=== PATIENT | male | born 1965 | race Caucasian/White ===

== ENCOUNTER 2020-04-08 08:07 | Day surgery (SDC) | payer OTHER ==
[~2020-04-08 08:07] MED LIST: EPINEPHrine 1 MG/ML SDV ONE; Lactated Ringers 1,000 ML IV SCH; Lidocaine 1%/Sod Bicarbonate in NS 8.4% 1 ML Syringe IDERM PRN; Ropivacaine 0.5% 5 MG/ML 30 ML SDV ONE; Sodium Chloride 0.9% 10 ML Syringe FLUSH PRN
[2020-04-08] MEDS ORDERED: ceFAZolin 1 GM Vial ONE (08:10)
[2020-04-08] MEDS ORDERED: Ketorolac 30 MG/ML SDV ONE (08:10)
[2020-04-08] MEDS ORDERED: Lactated Ringers 1,000 ML ONE (08:10)
[2020-04-08] MEDS ORDERED: Propofol 200 MG/20 ML SDV ONE ×2 (08:10→09:50)
[2020-04-08] MEDS ORDERED: Ondansetron 4 MG/2 ML SDV ONE (08:10)
[2020-04-08] MEDS ORDERED: Midazolam 1 MG/ML 2 ML SDV ONE (08:11)
[2020-04-08] MEDS ORDERED: Lidocaine 1% 4 ML ONE (08:11)
[2020-04-08] MEDS ORDERED: fentaNYL 100 MCG/2 ML SDV ONE (08:11)
[2020-04-08] MEDS ORDERED: Dexamethasone 4 MG/ML 5 ML MDV ONE (08:11)
[2020-04-08] MEDS ORDERED: Scopolamine 1.5 MG Transdermal Patch TOP ONE (08:32)
[2020-04-08] MEDS ORDERED: Ketamine 500 mg/10 ML MDV ONE (09:49)
[2020-04-08] MEDS ORDERED: EPINEPHrine 1 MG/ML 30 ML MDV IRR SCH (10:30)
--- NOTE | 2020-04-08 10:50 | PCM.POSTAN ---
POST ANESTHESIA ASSESSMENT - MENTAL STATUS Mental Status: Somnolent - VITAL SIGNS Vital Signs: Last Vital Signs Temp 36.6 C 04/08/20 08:05 Pulse 100 04/08/20 09:10 Resp 12 04/08/20 09:10 BP 148/94 H 04/08/20 09:10 Pulse Ox 96 04/08/20 09:10 1039 98.3F 133/74 80 15 94% - RESPIRATORY Respiratory Status: Respiratory Rate WNL, Airway Patent, O2 Saturation Stable, Supplemental Oxygen - CARDIOVASCULAR CV Status: Pulse Rate WNL, Blood Pressure Stable - GASTROINTESTINAL GI Status: No Symptoms - PAIN Pain Score: 0 - POST OP HYDRATION Hydration Status: Adequate & Stable
--- NOTE | 2020-04-08 10:54 | PCM.PREANE ---
Preanesthetic Assessment - Procedure Proposed Procedure: Right Shoulder Video Arthroscopy, Biceps tenotomy - Anesthesia/Transfusion/Family Hx Anesthesia History: Prior Anesthesia Reaction Type of Anesthesia Reaction: Excessive Nausea/Vomiting (With general anesthesia one time. ) Family History of Anesthesia Reaction: No - Review of Systems General: No Symptoms Pulmonary: No Symptoms Cardiovascular: No Symptoms Gastrointestinal: No Symptoms Neurological: Other (Hearing loss bilateral, ) Other: Reports: Sinus Problem (Seasonal allergies) - Physical Assessment NPO Status Date: 04/07/20 NPO Status Time: 22:00 Vital Signs: Last Vital Signs Temp 36.6 C 04/08/20 08:05 Pulse 100 04/08/20 09:10 Resp 12 04/08/20 09:10 BP 148/94 H 04/08/20 09:10 Pulse Ox 96 04/08/20 09:10 Height: 1.78 m Weight: 84.3 kg ASA Class: 2 Mental Status: Alert & Oriented x3 Airway Class: Mallampati = 1 Dentition: Reports: Normal Dentition Thyro-Mental Finger Breadths: 3 Mouth Opening Finger Breadths: 3 ROM/Head Extension: Full Lungs: Clear to Auscultation, Normal Respiratory Effort Cardiovascular: Regular Rate, Regular Rhythm - Lab Values: Laboratory Last Values MRSA (PCR) Negative 03/24/20 16:09 - Allergies Allergies/Adverse Reactions: Allergies Allergy/AdvReac Type Severity Reaction Status Date / Time No Known Drug Allergies Allergy N/A Verified 04/07/20 12:25 - Anesthesia Plan Pre-Op Medication Ordered: Anxiolytic, Other (Scopalamine Patch) - Acknowledgements Anesthesia Type Planned: General Anesthesia (LMA), Regional Block (Preoperative Interscalene Nerve Block for postoperative pain control. 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 Neurological History: Reports: None Psychiatric History: Reports: None Endocrine/Metabolic History: Reports: None Hematologic History: Reports: None Immunologic History: Reports: None Oncologic (Cancer) History: Reports: None Dermatologic History: Reports: Other (See Below) Other Dermatologic History: lipoma excision - Infectious Disease History Infectious Disease History: Reports: None - Past Surgical History Head Surgeries/Procedures: Reports: None HEENT Surgical History: Reports: Naso-Sinus Surgery Cardiovascular Surgical History: Reports: None Respiratory Surgical History: Reports: None GI Surgical History: Reports: Colonoscopy Female Surgical History: Reports: None Male Surgical History: Reports: None Endocrine Surgical History: Reports: None Neurological Surgical History: Reports: None Musculoskeletal Surgical History: Reports: Arthroscopic Knee, Shoulder Surgery Dermatological Surgical History: Reports: None - SUBSTANCE USE Tobacco Use Status *Q: Never Tobacco User Recreational Drug Use History: No - HOME MEDS Home Medications: Home Meds Aspirin 81 mg PO DAILY 04/07/20 [History] Diclofenac Sodium [Voltaren 1% Gel] 1 dose TOP BID 04/07/20 [History] Mometasone Furoate [Nasonex] 2 spray LUISA DAILY 04/07/20 [History] Montelukast [Singulair] 10 mg PO DAILY 04/07/20 [History] Multivitamin 1 tab PO DAILY 04/07/20 [History] Olopatadine [Pataday 0.2% Ophth Soln] 1 - 2 drop EYEBOTH DAILY PRN 04/07/20 [History] Rosuvastatin [Crestor] 10 mg PO DAILY 04/07/20 [History] Acetaminophen/HYDROcodone [[place] 325-5 MG] 1 - 2 tab PO Q6H PRN #30 tablet 04/08/20 [Rx] Cyclobenzaprine [Flexeril] 10 mg PO Q12H PRN #20 tab 04/08/20 [Rx] - CURRENT (IN HOUSE) MEDS Current Meds: Current Medications Epinephrine HCl (Adrenalin) 3 mg IRR ONETIME DEQUAN Stop: 04/08/20 23:00 Lactated Ringer's (Ringers, Lactated) 1,000 mls @ 125 mls/hr IV ASDIRECTED DEQUAN Stop: 04/08/20 23:00 Last Admin: 04/08/20 08:20 Dose: 125 mls/hr Documented by: Lidocaine/Sodium Bicarbonate (Buffered Lidocaine 1% In Ns 8.4%) 0.25 ml IDERM ONETIME PRN PRN Reason: Prior to IV Start Stop: 04/08/20 18:00 Last Admin: 04/08/20 08:20 Dose: 0.25 ml Documented by: Sodium Chloride (Saline Flush) 10 ml FLUSH ASDIRECTED PRN PRN Reason: Keep Vein Open Stop: 04/08/20 18:00 Discontinued Medications Cefazolin Sodium (Ancef) Confirm Administered Dose 2 gm .ROUTE .STK-MED ONE Stop: 04/08/20 08:11 Dexamethasone (Dexamethasone) Confirm Administered Dose 20 mg .ROUTE .STK-MED ONE Stop: 04/08/20 08:12 Epinephrine HCl (Adrenalin) Confirm Administered Dose 1 mg .ROUTE .STK-MED ONE Stop: 04/08/20 07:59 Fentanyl (Sublimaze) Confirm Administered Dose 100 mcg .ROUTE .STK-MED ONE Stop: 04/08/20 08:12 Lactated Ringer's (Ringers, Lactated) Confirm Administered Dose 1,000 mls @ as directed .ROUTE .STK-MED ONE Stop: 04/08/20 08:11 Lidocaine HCl (Xylocaine-Mpf 1%) Confirm Administered Dose 4 mls @ as directed .ROUTE .ST-MED ONE Stop: 04/08/20 08:12 Ketamine HCl (Ketalar) Confirm Administered Dose 500 mg .ROUTE .STK-MED ONE Stop: 04/08/20 09:50 Ketorolac Tromethamine (Toradol) Confirm Administered Dose 30 mg .ROUTE .ST-MED ONE Stop: 04/08/20 08:11 Midazolam HCl (Versed 1 Mg/Ml) Confirm Administered Dose 2 mg .ROUTE .STK-MED ONE Stop: 04/08/20 08:12 Ondansetron HCl (Zofran) Confirm Administered Dose 4 mg .ROUTE .ST-MED ONE Stop: 04/08/20 08:11 Propofol (Diprivan 20 Ml) Confirm Administered Dose 400 mg .ROUTE .STK-MED ONE Stop: 04/08/20 08:11 Propofol (Diprivan 20 Ml) Confirm Administered Dose 200 mg .ROUTE .STK-MED ONE Stop: 04/08/20 09:51 Ropivacaine (Naropin 0.5%) Confirm Administered Dose 30 ml .ROUTE .STK-MED ONE Stop: 04/08/20 07:59 Scopolamine (Transderm-Scop) 1.5 mg TOP ONETIME ONE Stop: 04/08/20 08:33 Last Admin: 04/08/20 09:11 Dose: 1.5 mg Documented by:
--- NOTE | 2020-04-08 10:58 | PCM.SN.2 ---
- Free Text/Narrative Note: Date: 04/08/2020 Time Out: 0855 Start: 0856 Stop: 904 Right interscalene block under US guidance for postoperative pain control requested by Dr. Alejo. Patient chart reviewed, risk/benefits discussed with patient, consent obtained. Patient positioned supine, monitors/alarms on, oxygen placed via nasal cannula at 2 LPM. IV sedation administered: Versed 2mg IV, Fentanyl 50mcg IV given at 0954. Right shoulder prepped with two chloropreps. Sterile drapes placed with aseptic technique noted. Under US guidance, right subclavian artery visualized along with the right brachial plexus. Plexus followed up to C6 cricoid level, and area localized with 2mls of 1% lidocaine. 22gauge 2 inch stimiplex needle advanced under US with 0.6mV with stimulation of biceps noted. Good stimulation noted with decreased voltage and absent at 0.3mVs. 1ml of Normal Saline injected with loss of stimulation noted to confirm needle not placed intraneurally. Incremental dosing of 5mls with negative aspiration noted prior to each injection of 0.5% ropivacaine with 1:200,000 epinephrine. Total volume=30mls. Please refer to nurses noted for vital signs. Patient tolerated the procedure well with no complaints, and no complications at this time. Jess Orlando [employer] P[employer]ENGER VESSEL
--- NOTE | 2020-04-08 12:05 | PCM48HPAN ---
Post Anesthesia Note - EVALUATION WITHIN 48HRS OF ANESTHETIC Vital Signs in Normal Range: Yes Patient Participated in Evaluation: Yes Respiratory Function Stable: Yes Airway Patent: Yes Cardiovascular Function Stable: Yes Hydration Status Stable: Yes Pain Control Satisfactory: Yes Nausea and Vomiting Control Satisfactory: Yes Mental Status Recovered: Yes Vital Signs: Last Vital Signs Temp 36.8 C 04/08/20 10:39 Pulse 100 04/08/20 09:10 Resp 15 04/08/20 11:20 BP 143/98 H 04/08/20 11:20 Pulse Ox 92 L 04/08/20 11:20
--- NOTE | 2020-04-26 10:09 | PCM.OPNOTE ---
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
--- NOTE | 2020-04-26 11:55 | OR ---
DATE OF OPERATION: 04/08/2020 SURGEON: Alton Alejo MD OPERATION PERFORMED: Right shoulder video arthroscopy with extensive debridement. PREOPERATIVE DIAGNOSIS: Right shoulder superior labral anterior to posterior tear with biceps tendinopathy. 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 ANESTHESIA: Technique: General endotracheal intubation with regional interscalene block. ANESTHESIA PROVIDER: Bibi Mccormack. BREAKER UP: Meghan Michelle PA-C. ESTIMATED BLOOD LOSS: Less than 5 mL. COMPLICATIONS: None. CONDITION: Stable. DESCRIPTION OF PROCEDURE: The patient was identified in the preoperative holding area. Proper site was marked and identified by the surgeon. The patient was taken back to the operating theater where after adequate anesthesia, the patient was placed in the lazy left lateral decubitus position. Wedge was placed posteriorly. The patient was secured to the table. Right upper extremity was then sterilely prepped and draped in the usual sterile fashion. OR time-out was performed. The patient received 2 g IV Ancef. 12 pounds traction was applied to the right upper extremity. At this time, standard posterior incision was made. Scope trocar was introduced to the glenohumeral joint. The patient was noted at this time to have significant chondromalacia of the glenoid as well as humeral head with full-thickness defects noted. The patient had severe fraying of his labrum circumferentially as well as fraying of his subscapularis tendon and the biceps tendon was showing significant fraying. At this time, it was decided that we would not do a rotator cuff repair or labral repair and the patient would be in need of a reverse total shoulder arthroplasty in the future. The patient was noted to have a significant high-grade partial-thickness tears of the supra and infraspinatus as well intra-articularly. Anterior portal was then created. A biceps tenotomy was then completed. I did do an extensive debridement of the chondromalacia as well as the labral fraying. At this time, it was noted that we could do no further repair secondary to the patient's severe chondromalacia. Excess saline was drained from the shoulder. A 3-0 nylon suture was used for closure of skin. The patient was placed in a sling and sent to PACU in stable condition. MMODAL /[id number]
== END 2020-04-08 13:05 | disposition home or self-care (01) ==
LOC: JD.SDS 08:07
PROVIDERS: ATTEND Orthopaedic Surgery
DX: S43.431A Superior glenoid labrum lesion of right shoulder, initial encounter (principal); M94.211 Chondromalacia, right shoulder; G89.18 Other acute postprocedural pain; E78.5 Hyperlipidemia, unspecified; Z79.899 Other long term (current) drug therapy; Z79.82 Long term (current) use of aspirin; Z98.890 Other specified postprocedural states
CPT/HCPCS: 29823; 87641; A9270; J0171; J0690; J1100; J1885; J2001; J2250; J2405; J2704; J2795; J3010; J7120; 01630; 64415

== ENCOUNTER 2021-03-10 07:15 | Day surgery (SDC) | payer OTHER ==
--- NOTE | 2021-03-09 14:09 | PCM.PREANE ---
Preanesthetic Assessment - Procedure Proposed Procedure: Excision of soft tissue mass to posterior neck - Anesthesia/Transfusion/Family Hx Anesthesia History: Prior Anesthesia Reaction - Imaging/EKG Impressions: EKG 03/12/21: NSR HR 73 - Allergies Allergies/Adverse Reactions: Allergies Allergy/AdvReac Type Severity Reaction Status Date / Time No Known Drug Allergies Allergy N/A Verified 04/08/20 15:24 PreAnesthesia Questionnaire HEENT History: Reports: Hard of Hearing, Impaired Vision Cardiovascular History: Reports: High Cholesterol Respiratory History: Reports: Other (See Below) Other Respiratory History: cough Genitourinary History: Reports: Other (See Below) (benign enlargement of prostate) [employer] 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 Musculoskeletal History: Reports: Arthritis, Other (See Below) (Right shoulder pain) Neurological History: Reports: None Psychiatric History: Reports: None Endocrine/Metabolic History: Reports: None Hematologic History: Reports: None Immunologic History: Reports: None Oncologic (Cancer) History: Reports: None Dermatologic History: Reports: Other (See Below) Other Dermatologic History: lipoma excision - Infectious Disease History Infectious Disease History: Reports: None - Past Surgical History Head Surgeries/Procedures: Reports: None HEENT Surgical History: Reports: Naso-Sinus Surgery Cardiovascular Surgical History: Reports: None Respiratory Surgical History: Reports: None GI Surgical History: Reports: Colonoscopy Female Surgical History: Reports: None Male Surgical History: Reports: None Endocrine Surgical History: Reports: None Neurological Surgical History: Reports: None Musculoskeletal Surgical History: Reports: Arthroscopic Knee, Shoulder Surgery Dermatological Surgical History: Reports: Other (See Below) (lipoma excision on chest) - HOME MEDS Home Medications: Home Meds Aspirin 81 mg PO DAILY 04/07/20 [History] Diclofenac Sodium [Voltaren 1% Gel] 1 dose TOP BID 04/07/20 [History] Mometasone Furoate [Nasonex] 2 spray LUISA DAILY 04/07/20 [History] Montelukast [Singulair] 10 mg PO DAILY 04/07/20 [History] Multivitamin 1 tab PO DAILY 04/07/20 [History] Olopatadine [[place] 0.2% Ophth Soln] 1 - 2 drop EYEBOTH DAILY PRN 04/07/20 [History] Rosuvastatin [Crestor] 10 mg PO DAILY 04/07/20 [History] Acetaminophen/HYDROcodone [[place] 325-5 MG] 1 - 2 tab PO Q6H PRN #30 tablet 04/08/20 [Rx] Cyclobenzaprine [Flexeril] 10 mg PO Q12H PRN #20 tab 04/08/20 [Rx] Hydrocodone/Acetaminophen [[place] 5-325 Tablet] 1 tab PO Q6H PRN 04/08/20 [History] - CURRENT (IN HOUSE) MEDS Current Meds: Current Medications Lactated Ringer's (Ringers, Lactated) 1,000 mls @ 125 mls/hr IV ASDIRECTED DEQUAN Stop: 03/10/21 23:00 Lidocaine/Sodium Bicarbonate (Lidocaine 1%/Sod Bicarbonate In Ns 8.4% 1 Ml Syringe) 0.25 ml IDERM ONETIME PRN PRN Reason: Prior to IV Start Stop: 03/10/21 18:00 Sodium Chloride (Sodium Chloride 0.9% 10 Ml Syringe) 10 ml FLUSH ASDIRECTED PRN PRN Reason: Keep Vein Open Stop: 03/10/21 18:00
[~2021-03-10 07:15] MED LIST changes: -EPINEPHrine 1 MG/ML SDV ONE; +Midazolam 1 MG/ML 2 ML SDV ONE; +Propofol 200 MG/20 ML SDV ONE; -Ropivacaine 0.5% 5 MG/ML 30 ML SDV ONE; +fentaNYL 100 MCG/2 ML SDV ONE
[2021-03-10] MEDS ORDERED: Lidocaine 1% with EPINEPHrine 1:100,000 20 ML MDV ONE (07:40)
[2021-03-10] MEDS ORDERED: Bupivacaine 0.5% 30 ML SDV ONE (07:41)
--- NOTE | 2021-03-10 08:44 | PCM.PRNOTE ---
- Free Text/Narrative Note: Date: 03/10/2021 Operation: excision of posterior neck nodule Surgeon: Jack Pierce MD EBL: minimal Antibiotic: not indicated Specimen: posterior neck soft tissue Findings: lesion was marked with aid of patient in pre-op area. No obvious discrete lesion was appreciated on exploration. Subcutaneous tissue in area of concern was excised and sent for pathology. After excision, no soft tissue mass could be palpated in the region. The specimen measured about 1 x 1 x 1 cm. Detailed Report: The patient was taken to the operating room and placed on the table in prone position. The posterior neck was prepped with ChloraPrep and draped in sterile fashion. No sedation or general anesthetic was utilized for this case. 5 cc of 1% lidocaine with epinephrine was injected intradermally at the marked site. A 2.5 cm transverse incision was made over the site of the marked lesion, and skin flaps were developed. There was perhaps lipomatous tissue in the subcutaneous plane but no discrete abnormality was otherwise appreciated. This tissue was excised using monopolar energy and sent for pathologic analysis. The final specimen measured approximately 1 cm in diameter. Hemostasis was achieved with directed electrocautery. The incision was being off to permit passage of the surgeon's index finger and on digital exploration no soft tissue mass or abnormality could be appreciated. The wound was closed with 2 simple interrupted nylon sutures and dressed with dry gauze and Tegaderm. The patient tolerated the procedure well.
== END 2021-03-10 08:50 | disposition home or self-care (01) ==
LOC: JD.SDS 07:15
PROVIDERS: ATTEND Surgery
DX: M79.89 Other specified soft tissue disorders (principal); E78.5 Hyperlipidemia, unspecified; Z79.82 Long term (current) use of aspirin; Z79.899 Other long term (current) drug therapy; Z98.890 Other specified postprocedural states
CPT/HCPCS: J2250; J2704; J3010; J3490